=== PATIENT | male | born 1990 | race American Indian/Alaskan Native ===

== ENCOUNTER 2021-12-23 07:06 | Emergency (ER) | payer SELFPAY ==
[2021-12-23] MEDS ORDERED: IBUPROFEN 800 MG TAB PO ONE (12:17)
[2021-12-23] MEDS ORDERED: AMOXICILLIN/K CLAV 875/125MG TAB PO ONE (12:18)
--- NOTE | 2021-12-23 12:21 | Emergency Department Report ---
ED ENT HPI - General Chief complaint: Dental/Oral Stated complaint: DENTAL PAIN Source: patient Mode of arrival: Ambulatory Limitations: No Limitations - History of Present Illness Initial comments: 30-year-old male with no significant past medical history reports to the ER with complaints left-sided upper dental pain for 1 day. Patient reports taking OTC medications with slight relief. Patient reports having a left upper chipped tooth. No other acute symptoms reported at this moment. - Related Data Previous Rx's Medication Instructions Recorded Last Taken Type Amoxicillin/K Clav Tab [Augmentin 1 tab PO Q12HR 10 Days #20 tab 12/23/21 Unknown Rx 875 mg] Ibuprofen [Motrin] 800 mg PO Q8HR PRN 7 Days #21 12/23/21 Unknown Rx tablet Allergies Allergy/AdvReac Type Severity Reaction Status Date / Time No Known Allergies Allergy Verified 12/23/21 07:31 ED Dental HPI - General Chief complaint: Dental/Oral Stated complaint: DENTAL PAIN Source: patient Mode of arrival: Ambulatory Limitations: No Limitations - Related Data Previous Rx's Medication Instructions Recorded Last Taken Type Amoxicillin/K Clav Tab [Augmentin 1 tab PO Q12HR 10 Days #20 tab 12/23/21 Unknown Rx 875 mg] Ibuprofen [Motrin] 800 mg PO Q8HR PRN 7 Days #21 12/23/21 Unknown Rx tablet Allergies Allergy/AdvReac Type Severity Reaction Status Date / Time No Known Allergies Allergy Verified 12/23/21 07:31 ED Review of Systems ROS: Stated complaint: DENTAL PAIN Other details as noted in HPI Constitutional: denies: chills, fever Eyes: denies: eye pain, eye discharge, vision change ENT: dental pain. denies: ear pain, throat pain Respiratory: denies: cough, shortness of breath, wheezing Cardiovascular: denies: chest pain, palpitations Endocrine: no symptoms reported Gastrointestinal: denies: abdominal pain, nausea, diarrhea Genitourinary: denies: urgency, dysuria Musculoskeletal: denies: back pain, joint swelling, arthralgia Skin: denies: rash, lesions Neurological: denies: headache, weakness, paresthesias Psychiatric: denies: anxiety, depression Hematological/Lymphatic: denies: easy bleeding, easy bruising ED Past Medical Hx - Past Medical History Previous Medical History?: No - Medications Home Medications: Home Medications Medication Instructions Recorded Confirmed Last Taken Type Amoxicillin/K Clav Tab [Augmentin 1 tab PO Q12HR 10 Days #20 tab 12/23/21 Unknown Rx 875 mg] Ibuprofen [Motrin] 800 mg PO Q8HR PRN 7 Days #21 12/23/21 Unknown Rx tablet ED Physical Exam - General Limitations: No Limitations General appearance: alert, in no apparent distress - Head Head exam: Present: atraumatic, normocephalic - Eye Eye exam: Present: normal appearance - ENT ENT exam: Present: mucous membranes moist - Expanded ENT Exam Expanded Mouth exam: Absent: drooling, trismus Teeth exam: Present: fractured tooth # (Left side 3rd from the left upper molar) Throat exam: Positive: normal inspection - Neck Neck exam: Present: normal inspection - Respiratory Respiratory exam: Present: normal lung sounds bilaterally. Absent: respiratory distress - Cardiovascular Cardiovascular Exam: Present: regular rate, normal rhythm. Absent: systolic murmur, diastolic murmur, rubs, gallop - GI/Abdominal GI/Abdominal exam: Present: soft, normal bowel sounds - Rectal Rectal exam: Present: deferred - Extremities Exam Extremities exam: Present: normal inspection - Back Exam Back exam: Present: normal inspection - Neurological Exam Neurological exam: Present: alert, oriented X3 - Psychiatric Psychiatric exam: Present: normal affect, normal mood - Skin Skin exam: Present: warm, dry, intact, normal color. Absent: rash ED Course Vital Signs 12/23/21 12/23/21 07:32 12:50 Temperature 98.3 F 96.4 F L Pulse Rate 75 77 Respiratory 16 16 Rate Blood Pressure 123/76 132/66 [Left] O2 Sat by Pulse 94 100 Oximetry ED Medical Decision Making - Medical Decision Making 30-year-old male with no significant past medical history reports to the ER with left upper dental pain due to cracked tooth. Patient reports taking [id number] medication with slight relief. No concerns of airway. No trismus noted. Patient denies fever, chills, headache. On physical exam third 2 from the rear molar has cracked. Gum swelling is noted. No abscess noted. Patient given antibiotics and pain medicine while in the ER. Patient will follow his primary care provider as well as schedule a dentist appointment to be seen closer to his home in [facility]. Patient agrees with plan of care and verbalizes understanding. Patient stable for discharge home. Critical care attestation.: If time is entered above; I have spent that time in minutes in the direct care of this critically ill patient, excluding procedure time. ED Disposition Clinical Impression: Pain, dental, Cracked tooth Disposition: 01 HOME / SELF CARE / HOMELESS Is pt being admited?: No Condition: Stable Instructions: Preventive Dental Care, Adult, Acute Pain, Adult, Tooth Injuries Prescriptions: Amoxicillin/K Clav Tab [Augmentin 875 mg] 1 tab PO Q12HR 10 Days #20 tab Ibuprofen [Motrin] 800 mg PO Q8HR PRN 7 Days #21 tablet PRN Reason: Pain , Severe (7-10) Referrals: [facility] [Outside] - 3-5 Days [facility] [Outside] - 3-5 Days [facility] [Outside] - 3-5 Days Forms: Work/School Release Form(ED) Time of Disposition: 12:49
[2021-12-23 13:03] VITALS: BP 132/66
== END 2021-12-23 08:00 | disposition home or self-care (01) ==
LOC: ED 07:06
DX: K08.89 Other specified disorders of teeth and supporting structures (principal); K03.81 Cracked tooth
CPT/HCPCS: 99282